=== PATIENT | female | born 1970 | race Caucasian/White ===

== ENCOUNTER 2020-09-17 09:17 | Inpatient (IN) | payer OTHER ==
[~2020-09-17] VITALS: Ht 167.6 cm; Wt 63.2 kg
[2020-09-17 09:22] VITALS: BP 163/85
[2020-09-17 09:42] LABS: BASO # 0.1 10*3/uL (0.0-0.1); BASO % 1.4 % (0.0-1.0); EOS # 0.1 10*3/uL (0.0-0.4); EOS % 1.8 % (1.0-4.0); HEMATOCRIT 46.1 % (37.0-47.0); LYMPH # 1.8 10*3/uL (1.3-4.4); LYMPH % 32.2 % (27.0-41.0); MEAN CELL VOLUME 99.1 fl (81.0-99.0); MEAN CORPUSCULAR HGB 35.3 pg (27.0-31.0); MEAN CORPUSCULAR HGB CONC 35.6 g/dl (33.0-37.0); MEAN PLATELET VOLUME 9.2 fl (9.6-12.3); MONO # 0.4 10*3/uL (0.1-1.0); NEUT # 3.2 10*3/uL (2.3-7.9); NEUT % 57.4 % (47.0-73.0); PLATELET COUNT AUTOMATED 175 10*3/uL (130-400); RED BLOOD COUNT 4.65 10*6/uL (4.10-5.10); RED CELL DISTRI WIDTH 11.9 % (0-14.5); WHITE BLOOD COUNT 5.6 10*3/uL (4.8-10.8)
[2020-09-17 09:54] LABS: BILIRUBIN Negative (Negative); BLOOD Negative (Negative); CLARITY Clear (Clear); COLOR Yellow (Yellow); GLUCOSE Negative (Negative); KETONE Negative (Negative); LEUKO ESTERASE 2+ (Negative); NITRITE Negative (Negative); PH 6.5 (4.5-8.0); SPECIFIC GRAVITY <= 1.005 (1.001-1.030)
[2020-09-17 10:03] LABS: URINE AMPHETAMINES < 1000 (1000ng/ml); URINE BARBITURATES < 200 (200ng/ml); URINE BENZODIAZEPINES < 200 (200ng/ml); URINE CANNABINOIDS (THC) < 50 (50ng/ml); URINE COCAINE < 300 (300ng/ml); URINE METHADONE < 300 (300ng/ml); URINE OPIATES < 300 (300ng/ml)
[2020-09-17 10:08] LABS: ALBUMIN 4.8 gm/dl (3.1-4.5); ALKALINE PHOSPHATASE 105 U/L (45-117); BUN 5 mg/dl (7-24); CHLORIDE 104 mmol/L (98-107); CREATININE 0.49 mg/dL (0.55-1.02); POTASSIUM 3.6 mmol/L (3.5-5.1); SGOT/AST 72 IU/L (3-35); SGPT/ALT 54 U/L (12-78); SODIUM 133 mmol/L (136-145); TOTAL PROTEIN 9.2 gm/dL (6.4-8.2)
[2020-09-17 10:09] LABS: URINE PHENCYCLIDINE < 25 (25ng/ml)
[2020-09-17 10:13] LABS: BACTERIA 1+
[2020-09-17 11:21] VITALS: BP 137/83
[2020-09-17 12:20] VITALS: BP 158/77
[2020-09-17 16:00] VITALS: BP 145/80
[2020-09-17 20:00] VITALS: BP 136/89
[2020-09-18 06:31] LABS: BASO % 0.6 % (0.0-1.0); HEMATOCRIT 42.4 % (37.0-47.0); LYMPH # 0.9 10*3/uL (1.3-4.4); LYMPH % 13.5 % (27.0-41.0); MEAN CELL VOLUME 99.1 fl (81.0-99.0); MEAN CORPUSCULAR HGB CONC 35.4 g/dl (33.0-37.0); MONO # 0.5 10*3/uL (0.1-1.0); MONO % 7.3 % (3.0-9.0); PLATELET COUNT AUTOMATED 147 10*3/uL (130-400); RED BLOOD COUNT 4.28 10*6/uL (4.10-5.10); RED CELL DISTRI WIDTH 11.7 % (0-14.5); WHITE BLOOD COUNT 6.5 10*3/uL (4.8-10.8)
[2020-09-18 06:51] LABS: ALBUMIN 4.2 gm/dl (3.1-4.5); ALKALINE PHOSPHATASE 83 U/L (45-117); BUN 9 mg/dl (7-24); CHLORIDE 108 mmol/L (98-107); CHOLESTEROL 246 mg/dL (<200); CREATININE 0.52 mg/dL (0.55-1.02); POTASSIUM 3.2 mmol/L (3.5-5.1); SGOT/AST 54 IU/L (3-35); SGPT/ALT 44 U/L (12-78); SODIUM 139 mmol/L (136-145); TOTAL PROTEIN 7.9 gm/dL (6.4-8.2)
[2020-09-18 06:58] LABS: FREE T4 0.82 ng/dl (0.76-1.46); LDL CHOLESTEROL 135 mg/dL (9-159); THYROID STIM HORMONE (HS) 0.593 uIU/ml (0.358-4.75); TRIGLYCERIDES 49 mg/dl (<150)
[2020-09-18 08:00] VITALS: BP 168/76
[2020-09-18 12:00] VITALS: BP 162/84; BP 168/76
[2020-09-18 16:00] VITALS: BP 153/59
[2020-09-18 20:00] VITALS: BP 169/87
[2020-09-18 23:56] VITALS: BP 170/76
[2020-09-19 03:44] VITALS: BP 165/77
[2020-09-19 05:00] VITALS: BP 154/72
[2020-09-19 05:48] VITALS: BP 154/72
[2020-09-19 06:33] LABS: BASO % 0.5 % (0.0-1.0); EOS % 0.7 % (1.0-4.0); HEMATOCRIT 42.5 % (37.0-47.0); LYMPH # 1.5 10*3/uL (1.3-4.4); LYMPH % 25.1 % (27.0-41.0); MEAN CELL VOLUME 98.6 fl (81.0-99.0); MEAN CORPUSCULAR HGB 34.8 pg (27.0-31.0); MEAN CORPUSCULAR HGB CONC 35.3 g/dl (33.0-37.0); MEAN PLATELET VOLUME 10.3 fl (9.6-12.3); MONO # 0.5 10*3/uL (0.1-1.0); MONO % 8.2 % (3.0-9.0); NEUT # 3.8 10*3/uL (2.3-7.9); NEUT % 65.2 % (47.0-73.0); PLATELET COUNT AUTOMATED 129 10*3/uL (130-400); RED BLOOD COUNT 4.31 10*6/uL (4.10-5.10); RED CELL DISTRI WIDTH 11.3 % (0-14.5); WHITE BLOOD COUNT 5.9 10*3/uL (4.8-10.8)
[2020-09-19 06:56] LABS: ALBUMIN 4.1 gm/dl (3.1-4.5); ALKALINE PHOSPHATASE 75 U/L (45-117); BUN 10 mg/dl (7-24); CHLORIDE 105 mmol/L (98-107); POTASSIUM 3.5 mmol/L (3.5-5.1); SGOT/AST 51 IU/L (3-35); SGPT/ALT 39 U/L (12-78); SODIUM 132 mmol/L (136-145); TOTAL PROTEIN 7.8 gm/dL (6.4-8.2)
[2020-09-19 08:00] VITALS: BP 152/68
[2020-09-19] MEDS ORDERED: REQUIP0.25 M1 PO (10:39)
[2020-09-19] MEDS ORDERED: ZOFRAN4 MG PO (10:39)
== END 2020-09-19 11:20 | disposition home or self-care (01) | DRG 773 ==
LOC: ED 09:17 → EDHOLD 10:21 → 5E 11:15
PROVIDERS: Emergency Medicine; Internal Medicine; Student in an Organized Health Care Education/Training Program; ADMIT Emergency Medicine; ATTEND Emergency Medicine
DX: F11.93 Opioid use, unspecified with withdrawal (principal); A59.9 Trichomoniasis, unspecified; N39.0 Urinary tract infection, site not specified; D75.1 Secondary polycythemia; R74.8 Abnormal levels of other serum enzymes; E83.41 Hypermagnesemia; E87.1 Hypo-osmolality and hyponatremia; E87.8 Other disorders of electrolyte and fluid balance, not elsewhere classified; E78.00 Pure hypercholesterolemia, unspecified; F10.139 Alcohol abuse with withdrawal, unspecified; Y90.7 Blood alcohol level of 200-239 mg/100 ml; R74.01 Elevation of levels of liver transaminase levels; R73.9 Hyperglycemia, unspecified; F17.210 Nicotine dependence, cigarettes, uncomplicated; Z98.891 History of uterine scar from previous surgery